=== PATIENT | female | born 2000 | race Caucasian/White ===

== ENCOUNTER 2024-05-10 23:46 | Emergency (ER) | payer OTHER ==
[2024-05-11] MEDS ORDERED: prednisoLONE 1% Ophth Susp 5 ml Bottle L EYE SCH (00:45)
[2024-05-11] MEDS ORDERED: prednisoLONE 1% Ophth Susp 5 ml Bottle EA EYE SCH (00:45)
== END 2024-05-11 01:25 | disposition home or self-care (01) ==
LOC: MADERS 23:46
DX: H11.422 Conjunctival edema, left eye (principal); T78.40XA Allergy, unspecified, initial encounter
CPT/HCPCS: 99283